=== PATIENT | male | born 1990 ===

== ENCOUNTER 2018-03-10 09:04 | Emergency (ER) | payer OTHER ==
[~2018-03-10] VITALS: Ht 170.2 cm; Wt 90.7 kg
== END 2018-03-10 16:50 | disposition home or self-care (01) ==
LOC: ER 09:04
DX: G43.909 Migraine, unspecified, not intractable, without status migrainosus (principal)

== ENCOUNTER 2021-09-13 17:21 | Emergency (ER) | payer OTHER ==
[~2021-09-13] VITALS: Ht 172.7 cm; Wt 104.3 kg
[2021-09-13] MEDS ORDERED: METFORMIN HCL500 M4 PO (23:20)
== END 2021-09-13 23:29 | disposition home or self-care (01) ==
LOC: ER 17:21
DX: R73.9 Hyperglycemia, unspecified (principal); R42 Dizziness and giddiness